=== PATIENT | female | born 1955 | race Caucasian/White ===

== ENCOUNTER 2018-05-09 13:21 | Day surgery (SDC) | payer OTHER, MEDICARE ==
[2018-05-09] MEDS ORDERED: LIDOCAINE 1% 2 ML INJ ID PRN (13:52)
[2018-05-09] MEDS ORDERED: LR 1,000 ML IV ONE (13:52)
[2018-05-09] MEDS ORDERED: NS 1,000 ML IV ONE (13:56)
[2018-05-09] MEDS ORDERED: LIDOCAINE 1% 300 MG/30 ML SDV ONE (14:13)
[2018-05-09] MEDS ORDERED: PAPAVERINE HCL 60 MG/2 ML SDV ONE (14:13)
[2018-05-09] MEDS ORDERED: BUPIVACAINE 0.25% 30 ML SDV ONE (14:13)
[2018-05-09] MEDS ORDERED: IOTHALAMATE MEG (CONRAY) 50 ML VIAL IV ONE (14:14)
--- NOTE | 2018-05-09 14:25 | PDHPUP ---
History & Physical Update H&P update statement: This history and physical update is based on an assessment of the patient which was completed after admission or registration (within 24 hours), but prior to the surgery/procedure. H&P update: H&P reviewed & patient examined, no change in patient's condition since H&P completed
--- NOTE | 2018-05-09 14:26 | POSTOPPROG ---
Post Op Note Date of Operation: 05/09/18 Surgeon: Alex Viera Anesthesiologist: Robert Garcia Anesthesia: IV Sedation Pre-op Diagnosis: Left arm steal syndrome Post-op Diagnosis: Same Procedure: Ligation left arm AVF Inf/Abcess present in the surg proc area at time of surgery?: No Complications: no immediate Specimen(s): none
[2018-05-09 14:50] LABS: PLATELET COUNT 340 10^3/uL (150-400)
--- NOTE | 2018-05-09 14:52 | CPEKG ---
Test Reason : OPEN Blood Pressure : / mmHG Vent. Rate : 058 BPM Atrial Rate : 058 BPM P-R Int : 205 ms QRS Dur : 120 ms QT Int : 500 ms P-R-T Axes : 021 -42 051 degrees QTc Int : 492 ms Sinus rhythm Borderline prolonged SC interval Left anterior fascicular block Confirmed by Leonel Jin ([id number]) on 05/09/2018 2:52:10 PM Referred By: Confirmed By:Leonel Jin
[2018-05-09 15:00] LABS: INR 2.61 (0.83-1.16); PROTIME(PATIENT) 27.9 SEC (12.0-15.0)
[2018-05-09] MEDS ORDERED: D50W 25 GM/50 ML SYR IVP ONE (15:20)
[2018-05-09] MEDS ORDERED: D50W 25 GM/50 ML SYR IVP PRN (15:27)
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
[2018-05-09] MEDS ORDERED: ONDANSETRON 4 MG/2 ML VIAL IVP PRN (15:33)
[2018-05-09] MEDS ORDERED: fentaNYL 100 MCG/2 ML INJ IVP PRN (15:33)
[2018-05-09] MEDS ORDERED: NALOXONE HCL 0.4 MG/ML INJ IVP PRN (15:33)
[2018-05-09] MEDS ORDERED: PROPOFOL/EMULSION 500 MG/50 ML BOTTLE IV ONE (15:36)
[2018-05-09] MEDS ORDERED: fentaNYL 100 MCG/2 ML INJ ONE (16:05)
--- NOTE | 2018-05-09 16:53 | POSTANESTH ---
Post Anesthetic Evaluation Cardiovascular Status: Normal, Stable Respiratory Status: Normal, Stable Level of Consciousness/Mental Status: Can Participate in Eval Pain Control: Adequate, Prn Tx Ordered Nausea/Vomiting Control: Adequate, Prn Tx Ordered Complications Possibly Related to Anesthesia: None Noted
--- NOTE | 2018-05-09 17:37 | GOP ---
[f rep st] OPERATIVE REPORT DATE OF OPERATION: 05/09/2018 SURGEON: Alex Viera MD ANESTHESIA: MAC. ANESTHESIOLOGIST: Dr. Garcia. PREOPERATIVE DIAGNOSIS: Left hand steal syndrome. POSTOPERATIVE DIAGNOSIS: Left hand steal syndrome. PROCEDURE PERFORMED: Ligation of left upper extremity arteriovenous fistula. FINDINGS: See below. INDICATIONS: 62-year-old female with a long-standing placed basilic vein transposition fistula, left upper extremity. She has developed a poorly healing left 3rd digit posttraumatic wound, placing her at risk of digit and/or higher level limb loss. She is undergoing fistula ligation at this time. Significantly, the patient started peritoneal dialysis this week, which she is tolerating well. Risks and benefits were explained including bleeding, infection , ongoing hand ischemia and potential role for digital loss, as well as higher level amputation. All questions were answered. She desires to proceed. DESCRIPTION OF PROCEDURE: Monitored anesthesia was started. The left upper extremity was infiltrated with 1% lidocaine and 0.25% Marcaine. Significantly a whip stitch needed to be placed across the last dialysis access site secondary to clot dislodgement with patient draping. A transverse incision was created above the antecubital fossa. The fistula was circumferentially encompassed at the level of the prior brachial artery anastomotic site. The vein was ligated both proximally and distally and transected. Both ends were oversewn with a running back and forth Prolene sutures. Satisfactory hemostasis was assured. The arm was closed in layers with absorbable sutures followed by Dermabond. The patient was taken to recovery awake, uneventfully. /[id number]/MODL MTDD
[2018-05-09 18:02] VITALS: BP 162/47
== END 2018-05-09 18:07 | disposition home or self-care (01) ==
LOC: FSGY 13:21
PROVIDERS: ATTEND Surgery
PROC: 03L80ZZ Occlusion of Left Brachial Artery, Open Approach (ICD-10-PCS; principal; 2018-05-09 15:30)
DX: T82.898A Other specified complication of vascular prosthetic devices, implants and grafts, initial encounter (principal)
CPT/HCPCS: J1644; J2440; J2704; J3010; Q9961